=== PATIENT | female | born 1955 | race Caucasian/White ===

== ENCOUNTER 2019-11-22 12:42 | Emergency (ER) | payer OTHER ==
[~2019-11-22] VITALS: Ht 162.6 cm; Wt 77.1 kg
[2019-11-22] MEDS ORDERED: SULFAZINE EC500 MG (13:05)
[2019-11-22] MEDS ORDERED: URSO250 MG (13:05)
[2019-11-22] MEDS ORDERED: LEVSIN/SL0.125 MG SL (17:52)
[2019-11-22] MEDS ORDERED: KETO10TA2 PO (17:52)
[2019-11-22] MEDS ORDERED: PEPCID AC20 MG PO (17:52)
== END 2019-11-22 18:29 | disposition home or self-care (01) ==
LOC: ER 12:42
DX: R10.31 Right lower quadrant pain (principal); Z03.818 Encounter for observation for suspected exposure to other biological agents ruled out

== ENCOUNTER 2021-10-28 10:14 | Outpatient (CLI) | payer OTHER ==
[~2021-10-28 10:14] MED LIST: KETO10TA2 PO; LEVSIN/SL0.125 MG SL; PEPCID AC20 MG PO; SULFAZINE EC500 MG; URSO250 MG
== END 2021-10-28 10:45 | disposition home or self-care (01) ==
LOC: ASH CLINIC 10:14
PROVIDERS: ATTEND General Practice
DX: U07.1 COVID-19 (principal); Z23 Encounter for immunization